=== PATIENT | male | born 1970 | race Caucasian/White ===

== ENCOUNTER 2022-12-09 13:32 | Emergency (ER) | payer OTHER ==
[2022-12-09 14:00] VITALS: BP 169/104; PULSE 81; RESP 20; TEMP 97.9; BMI 34.8
[2022-12-09] MEDS ORDERED: KETOROLAC TROMETHAMINE 30 MG/1 ML VIAL IM ONE (14:53)
[2022-12-09] MEDS ORDERED: KETOROLAC TROMETHAMINE 30 MG/1 ML VIAL ONE (15:01)
== END 2022-12-09 16:26 | disposition home or self-care (01) ==
LOC: JER 13:32 → JERFT 13:32
PROC: 3E023GC Introduction of Other Therapeutic Substance into Muscle, Percutaneous Approach (ICD-10-PCS; principal; 2022-12-09)
DX: R07.89 Other chest pain (principal); V49.40XA Driver injured in collision with unspecified motor vehicles in traffic accident, initial encounter
CPT/HCPCS: 71046-TC-FY; 73610-TC-RT-FY; 73630-TC-RT-FY; 93005; 93010; 99284-25